=== PATIENT | female | born 2000 | race Asian ===

== ENCOUNTER 2019-11-04 06:55 | Day surgery (SDC) | payer OTHER ==
[2019-10-29 11:46] VITALS: BMI 26.5
--- NOTE | 2019-10-29 12:12 | HP ---
Admitting History and Physical - Primary Care Physician PCP: Mina Ball - Admission Chief Complaint: right breast mass x two History of Present Illness: 18 year old premenapausal female who presents with one year H/O right breast mass that is remaining stable. Bilateral breast US 10/2019 showed left breast to be negative ,right breast 3.5 cm mass as well as an adjacent smaller mass both which looked like fibroadenomas History Source: Patient Limitations to Obtaining History: No Limitations - Past Medical History ...LMP: 10/26/19 ...: No - Smoking History Smoking history: Never smoked Have you smoked in the past 12 months: No - Alcohol/Substance Use Hx Alcohol Use: No Home Medications - Allergies Allergies/Adverse Reactions: Allergies Allergy/AdvReac Type Severity Reaction Status Date / Time No Known Drug Allergies Allergy Verified 10/29/19 11:42 - Home Medications Home Medications: Ambulatory Orders NK [No Known Home Medication] 10/29/19 Family Medical History Other Family History: paternal aunt leukemia 67 Physical Examination Constitutional: Yes: Well Nourished Breast(s): Yes: Other ( bilateral diffusely nodular breast tissue and dense, Left breast negative, Right breast 3.0 cm mass right breast 12N5 rubbery C/W fibroadenoma) Problem List - Problems (1) Breast mass, right Problems reviewed: Yes Code(s): N63.10 - UNSPECIFIED LUMP IN THE RIGHT BREAST, UNSPECIFIED QUADRANT Assessment/Plan right breast biopsy for two masses which are compatible with fibroadenoma
[2019-11-04] MEDS ORDERED: LIDOCAINE HCL 1%, 10 MG/ML (20ML VIAL) ONE (07:12)
[2019-11-04] MEDS ORDERED: PROPOFOL 20 ML ONE (08:07)
[2019-11-04] MEDS ORDERED: MIDAZOLAM HCL 2 MG/2 ML SINGLE DOSE VIAL ONE ×2 (08:07→08:52)
[2019-11-04] MEDS ORDERED: ePHEDrine SULFATE 50 MG/1 ML AMPULE ONE (08:08)
[2019-11-04] MEDS ORDERED: SUCCINYLCHOLINE CHLORIDE 200 MG/10 ML SYRINGE ONE (08:08)
[2019-11-04] MEDS ORDERED: ONDANSETRON 4 MG/2 ML VIAL ONE (08:12)
[2019-11-04] MEDS ORDERED: BUPIVACAINE HCL/PF 0.5% (5MG/ML) 10 ML VIAL ONE (09:05)
[2019-11-04] MEDS ORDERED: LIDOCAINE HCL 1%, 10 MG/ML (20ML VIAL) NR ONE (09:11)
[2019-11-04] MEDS ORDERED: BUPIVACAINE HCL/PF 0.5% (5 MG/ML) 30 ML VIAL IJ ONE (09:11)
[2019-11-04] MEDS ORDERED: GUM MASTIC/STORAX/MSAL/ALCOHOL 1 DRP DROPSBTL MC ONE (09:27)
[2019-11-04] MEDS ORDERED: KETOROLAC TROMETHAMINE 30 MG/1 ML VIAL IVPUSH PRN (09:38)
[2019-11-04] MEDS ORDERED: ONDANSETRON 4 MG/2 ML VIAL IVPUSH PRN (09:38)
[2019-11-04] MEDS ORDERED: PROMETHAZINE HCL 25 MG/1 ML VIAL IVPUSH PRN (09:44)
[2019-11-04] MEDS ORDERED: oxyCODONE HCL 5 MG TABLET PO PRN (09:44)
[2019-11-04] MEDS ORDERED: DEXTROSE 5%-0.45% SALINE 1,000 ML IV SCH (09:45)
[2019-11-04 10:53] VITALS: BP 110/66; PULSE 80; TEMP 98
--- NOTE | 2019-11-05 14:21 | PATH ---
Surgical Pathology Report Patient Name: LETI AVENDAÑO [facility]. Rec. #: [id number] /Age/Gender: 2000 (Age: 19) / F Account: [id number] Location: [facility] Taken: 11/04/2019 Received: 11/04/2019 Reported: 11/05/2019 Physicians: Mina Ball M.D. Specimen(s) Received RIGHT BREAST MASSES @ 12 & 5 Clinical History Consistent with fibroadenomas Final Diagnosis BREAST, RIGHT, MASSES AT 12 & 5, EXCISION: FIBROADENOMAS (2). Electronically Signed Angela Echeverria M.D. Gross Description Received in formalin labeled "right breast masses 12 and 5," are 2 coleman, irregular, unoriented rubbery masses measuring 2.0 x 1.7 x 1.3 cm and 3.5 x 3.0 x 2.0 cm. The smaller mass is inked black and the larger mass is inked blue. Sectioning reveals coleman-pink, rubbery parenchyma. The specimen is entirely and sequentially submitted in 11 cassettes with the smaller mass in cassettes 1-4 and the larger mass in cassettes 5-10. Total formalin fixation time : Approximately 9 hours DL/11/04/2019 saudi/11/04/2019
--- NOTE | 2019-11-05 18:32 | OP ---
DATE OF OPERATION: 11/04/2019 PREOPERATIVE DIAGNOSIS: Right breast masses. POSTOPERATIVE DIAGNOSIS: Right breast masses. PROCEDURE: Right breast partial mastectomy. ANESTHESIA: IV sedation with local. ATTENDING SURGEON: Shea Ball MD. [employer]: PAWEL Camargo. ESTIMATED BLOOD LOSS: Minimal. COMPLICATIONS: None. DESCRIPTION OF PROCEDURE: Patient was made aware of the risks and benefits of the procedure and consented. She was placed in supine position and after IV sedation was administered, the operative site was prepped and draped in usual sterile fashion. Local anesthesia was infiltrated with 1% lidocaine with 0.5% bupivacaine in 1 to 1 ratio. A periareolar incision was then made using electrocautery tissues were dissected down to the 1st mass. This was bluntly and sharply dissected free and submitted as right breast mass. Additionally, an adjacent smaller mass was identified, and this was sharply dissected free and submitted with the 1st mass for permanent section. The wound was copiously irrigated with normal saline. Hemostasis maintained by electrocautery. The wound was closed with interrupted 3-0 Vicryl followed by running subcuticular 4-0 Monocryl. Steri-Strips, sterile dressing were then applied, and the patient having tolerated procedure well was transferred to the recovery room in excellent condition. SHEA BALL M.D. [id number]
== END 2019-11-04 10:53 | disposition home or self-care (01) ==
LOC: FASU 06:55
PROVIDERS: ATTEND Surgery Surgical Oncology
PROC: 0HBT0ZZ Excision of Right Breast, Open Approach (ICD-10-PCS; principal; 2019-11-04 08:30)
DX: D24.1 Benign neoplasm of right breast (principal); N63.14 Unspecified lump in the right breast, lower inner quadrant; N63.20 Unspecified lump in the left breast, unspecified quadrant
CPT/HCPCS: 84703; 88307-TC